=== PATIENT | female | born 1985 | race Caucasian/White ===

== ENCOUNTER → 2016-06-22 | Outpatient (CLI) | payer MEDICAID ==
--- NOTE | 2016-06-22 09:40 | US ---
June 22, 2016 Dear Providers at the [facility], Thank you for requesting consultation and a detailed obstetrical ultrasound for Ms. Garcia for her fe jemal anatomic review. As you know, Shawna is a 30 year old G 1, P 0 . Her due date is 11/05/16 by LMP of 01/29/17. Her current gestational age based on this dating is 20 weeks 4 days. She declined [employer]degreesmobile screening. She is a healthy woman without chronic medical problems. ULTRASOUND Number of fetuses: 1 Placental location: Posterior Placental cord insertion: Intraplacental presentation: Cephalic Cervix: 4.0 cm viewed transabdominally Maximum Vertical Pocket: 3.4 cm The adnexa were evaluated. No pathology was seen. Right ovary is visualized and appears normal. It measures 1.8 x 1.1 x 1.5 cm. Left ovary is visualized and appears normal. It measures 1.8 x 1.9 x 2.3 cm. MEASUREMENTS: Biparietal diameter: 49 mm 20 weeks, 6 days Head circumference: 183 mm 20 weeks, 5 days Abdominal circumference: 165 mm 21 weeks, 4 days Femur length: 34 mm 20 weeks, 4 days Humerus length: 32 mm 20 weeks, 4 days Transcerebellar diameter: 22 mm 20 weeks, 3 days Average ultrasound age: 21 weeks, 0 days Estimated weight: 394 gm weight percentile: 70% ANATOMY Supratentorial brain: Normal including views of the falx, cavum septum pellucidum and choroids Lateral Ventricle: Normal, measuring 2.5 mm Posterior fossa: Normal including the cerebellum and cisterna magna Spine: Normal Nuchal fold: 4.6 mm normal Face: Normal views of the lip and nose area Profile: Normal Palate: Normal appearance of the alveolar ridge Cardiac Exam: Four chamber view of the heart: Normal including intraventricular septum. There is an incidental E IF. Left Ventricular Outflow Tract: Normal Right Ventricular Outflow Tract: Normal 3 Vessel View: Normal Tracheal View: Normal Aortic Arch: Normal Ductal Arch: Normal SVC/IVC: Normal Heart Rate: 138 bpm Diaphragm: No overt abnormalities have been detected Stomach: Normal Umbilical cord insertion: Normal Right kidney: Pyelectasis at 5.3-5.4 mm Left kidney: Pyelectasis at 4.4-5.2 mm Bladder: Normal Number of cord vessels: Three Upper extremities: Normal including the number, and architecture Lower extremities: Normal including the number and architecture Gender: Female TRISOMY 21 MARKERS Nuchal fold: 4.6 mm Nasal bone: 5.2 mm Echogenic Bowel: No Femur Lengths Shortened: No Humerus Lengths Shortened: No Pyelectasis: Yes EIF Present: Yes IMPRESSION: 1. Intrauterine at 20 w 4 d, MASOOD of 11/05/16. This is consistent with her previously esta blished dates. 2. Today's sonogram reveals a normal appearing fetus with two sonographic markers for Trisomy 21. 3. Cervical length measures 4.0 cm, and is without evidence of insufficiency. 4. Advanced maternal age RECOMMENDATIONS: I was pleased to review today's ultrasound with your patient. I have reassured her that the gr owth and amniotic fluid volume are appropriate for this gestational age. The detailed anatomic surve y including sonographic markers for Down Syndrome revealed an EIF and bilateral pyelectasis with an o therwise normal appearing anatomic review. Her age based risk for Down Syndrome without screening is 1 in 442. Modification by today's markers takes her risk to 1 in 164. Shawna is aware that ultras ound is a screening tool and cannot provide definitive genetic diagnosis. Should she desire definiti ve genetic diagnosis, she would need to have a genetic amniocentesis performed. After our discussion regarding the procedure, benefits, risks, alternatives, and limitations to the information received Shawna DECLINES amniocentesis. We also discussed the option of pursuing NIPT, discussed its capabi lity for evaluating risk of Trisomy 21 and the limitations for other types of genetic issues, sensiti vity and predictive value. After our conversation she has chosen NIPT. We also discussed follow up of pyelectasis in the 3rd trimester and I recommend reevaluation at 32 we eks. Please have her call our office to schedule. Thank you for allowing me the opportunity to consult and evaluate your patient. Should you have any questions or concerns please do not hesitate to contact me. This visit was approximately 30 minutes in length with 20 minutes spent in direct face to face consultation reviewing aneuploidy screening ve rsus definitive genetic diagnosis. Sincerely, Veena Holden MD Wildlife Conservation Officer Maternal Medicine Department of Obstetrics & Gynecology [facility]
--- NOTE | 2016-06-22 10:19 | US ---
Complete Obstetric Ultrasound History: 30-year-old with estimated gestational age of 20 weeks 4 days and EDC of November 05, 2016. Comparison: OB ultrasound May 01, 2016. Findings: Number: 1 Presentation: Vertex Placental location: Posterior. No previa. Cervix: Closed, measuring 4.0 cm transabdominally Maximum vertical pocket: 3.4 cm The ovaries are normal. Biometry: Biparietal diameter: 49 mm 20 weeks, 6 days Head circumference: 183 mm 20 weeks, 5 days Abdominal circumference: 165 mm 21 weeks, 4 days Femur length: 34 mm 20 weeks, 4 days Humerus length: 32 mm 20 weeks, 4 days Transcerebellar diameter: 22 mm 20 weeks, 6 days Average ultrasound age: 21 weeks, 0 days EDC based on today's average ultrasound age: November 02, 2016 Estimated weight is 394 gms +/- 58 gms. The estimated weight percentile is 70 % based on previous dating. ANATOMY SURVEY: Supratentorial brain: Normal Posterior fossa: Normal Spine: Normal Nose and lips: Normal Heart: Four-chamber heart with a heart rate of 138 bpm. Left ventricular echogenic intracardiac focu s is noted. The outflow tracts are normal. Stomach: Normal Umbilical cord insertion: Normal Kidneys: The renal pelves measure 5.3 to 5.4 mm on the right and 4.4 to 5.2 mm on the left. Bladder: Normal Number of cord vessels: Three Upper extremities: Normal Lower extremities: Normal Impression: 1. Living single intrauterine with size concordant with dates. 2. Left ventricular echogenic intracardiac focus and pyelectasis, 2 sonographic markers for Down synd randy. 3. Additional findings as above. Please see separate dictation for consultation performed by Veena Holden MD, the same day.
== END ==
LOC: FIMAGING 07:59
PROVIDERS: ATTEND Advanced Practice Midwife
DX: O28.3 Abnormal ultrasonic finding on antenatal screening of mother (principal); Z3A.21 21 weeks gestation of pregnancy